=== PATIENT | male | born 1950 | race Caucasian/White ===

== ENCOUNTER 2016-12-17 00:58 | Emergency (ER) | payer OTHER ==
[~2016-12-17] VITALS: Ht 170.2 cm; Wt 102.0 kg
[2016-12-17] MEDS ORDERED: LIPITOR10 MG PO (02:02)
[2016-12-17] MEDS ORDERED: AVALIDE 300-121 EACH PO (02:02)
[2016-12-17] MEDS ORDERED: BUPRENEX INJECT (02:04)
[2016-12-17] MEDS ORDERED: GLUCOPHAGE500 MG PO (02:04)
[2016-12-17] MEDS ORDERED: SINEQUAN25 MG PO (02:05)
[2016-12-18] MEDS ORDERED: RYTHMOL SR325 MG PO (10:07)
[2016-12-18] MEDS ORDERED: VOLTAREN25 MG PO (10:08)
[2016-12-18] MEDS ORDERED: CEFTIN250 MG PO (10:09)
[2016-12-18] MEDS ORDERED: PROPRANOLOL HC160 MG PO (10:49)
[2016-12-27] MEDS ORDERED: DICLOFENAC POTA50 MG PO (04:53)
[2016-12-27] MEDS ORDERED: CYMBALTA30 MG PO (04:53)
[2016-12-27] MEDS ORDERED: SINEQUAN25 MG PO (04:56)
[2016-12-27] MEDS ORDERED: XANAX1 MG PO (04:57)
[2016-12-27] MEDS ORDERED: CATAPRES0.1 MG PO (04:58)
== END 2016-12-17 04:45 | disposition short-term general hospital (02) ==
LOC: ER 00:58
DX: J32.9 Chronic sinusitis, unspecified (principal); F41.9 Anxiety disorder, unspecified; Z79.899 Other long term (current) drug therapy; I10 Essential (primary) hypertension; E11.9 Type 2 diabetes mellitus without complications; E78.5 Hyperlipidemia, unspecified; Z98.890 Other specified postprocedural states; Z90.89 Acquired absence of other organs; Z88.0 Allergy status to penicillin; Z79.84 Long term (current) use of oral hypoglycemic drugs
CPT/HCPCS: J1885; J2175; J2550

== ENCOUNTER 2016-12-18 09:30 | Emergency (ER) | payer OTHER ==
[~2016-12-18] VITALS: Ht 170.2 cm; Wt 102.1 kg
[~2016-12-18 09:30] MED LIST: AVALIDE 300-121 EACH PO; BUPRENEX INJECT; GLUCOPHAGE500 MG PO; LIPITOR10 MG PO; SINEQUAN25 MG PO
[2016-12-18] MEDS ORDERED: RYTHMOL SR325 MG PO (10:07)
[2016-12-18] MEDS ORDERED: VOLTAREN25 MG PO (10:08)
[2016-12-18] MEDS ORDERED: CEFTIN250 MG PO (10:09)
[2016-12-18] MEDS ORDERED: PROPRANOLOL HC160 MG PO (10:49)
[2016-12-27] MEDS ORDERED: DICLOFENAC POTA50 MG PO (04:53)
[2016-12-27] MEDS ORDERED: CYMBALTA30 MG PO (04:53)
[2016-12-27] MEDS ORDERED: SINEQUAN25 MG PO (04:56)
[2016-12-27] MEDS ORDERED: XANAX1 MG PO (04:57)
[2016-12-27] MEDS ORDERED: CATAPRES0.1 MG PO (04:58)
== END 2016-12-18 12:08 | disposition short-term general hospital (02) ==
LOC: ER 09:30
DX: R53.1 Weakness (principal); R25.9 Unspecified abnormal involuntary movements; F41.9 Anxiety disorder, unspecified; R00.2 Palpitations; I10 Essential (primary) hypertension; E11.9 Type 2 diabetes mellitus without complications; E78.5 Hyperlipidemia, unspecified; Z79.899 Other long term (current) drug therapy; Z79.84 Long term (current) use of oral hypoglycemic drugs
CPT/HCPCS: J2060